=== PATIENT | female | born 1980 | race Caucasian/White ===

== ENCOUNTER 2022-04-26 20:53 | Emergency (ER) | payer OTHER ==
[2022-04-26 23:03] LABS: HEMOGLOBIN 13.2 gm/dl (12.3-15.3); RED BLOOD COUNT 4.48 M/UL (4.00-5.10); WHITE BLOOD COUNT 8.1 K/UL (4.5-11.0)
[2022-04-26 23:27] LABS: BUN/CREATININE RATIO 21 (0-10)
[2022-04-27] MEDS ORDERED: BENTYL 20MG TAB20 MG PO (04:11)
[2022-04-27] MEDS ORDERED: REGLAN10 MG PO (04:11)
[2022-04-27] MEDS ORDERED: TYLENOL EXTRA500 MG PO (04:11)
[2022-04-27] MEDS ORDERED: METRONIDAZOLE500 MG PO (04:11)
[2022-04-27] MEDS ORDERED: OMNICEF 300 MG300 MG PO (04:11)
[2022-04-28 21:11] LABS: CHLAMYDIA TRACHOMATIS, NAA Negative (Negative); NEISSERIA GONORRHOEAE, NAA Negative (Negative)
== END 2022-04-27 04:30 | disposition home or self-care (01) ==
LOC: ER1 20:53
PROVIDERS: Physician Assistant
DX: O23.42 Unspecified infection of urinary tract in pregnancy, second trimester (principal); N39.0 Urinary tract infection, site not specified; N89.8 Other specified noninflammatory disorders of vagina; F17.210 Nicotine dependence, cigarettes, uncomplicated; Z88.2 Allergy status to sulfonamides; Z3A.14 14 weeks gestation of pregnancy; Z20.822 Contact with and (suspected) exposure to COVID-19
CPT/HCPCS: 80053; 81001; 83605; 83880; 85025; 85652; 86140; 87086; 87210; 96374; 96375; 99284; J0696; J2765; U0002